=== PATIENT | female | born 1965 | race Hispanic/Latino ===

== ENCOUNTER 2018-05-23 05:30 | Day surgery (SDC) | payer BC ==
[~2018-05-23] VITALS: Ht 167.6 cm; Wt 73.2 kg
[~2018-05-23 05:30] MED LIST: CLON0.1T PO; CYCL10 PO; ESOM40CA PO; INSU10VI3 SQ; INSU3INS3 SQ; LINA290C PO; LORA10CA PO; LORA10TA7 PO; LOSA100T20 PO; MELO-108 PO; METO-296 PO; MONT10TA21 PO; PREG100C PO; RANI-248 PO; SIMV40TA59 PO; ZOLP10TA2 PO; [UNRECOGNIZED DRUG - CODE] PO
[2018-05-23] MEDS ORDERED: SODIUM CHLORIDE 0.9% 1000ML 1,000 ML IV ONE (05:46)
[2018-05-23 06:04] VITALS: BP 110/64
[2018-05-23] MEDS ORDERED: LIDOCAINE HCL 2% 20ML ONE (06:51)
== END 2018-05-23 07:40 | disposition home or self-care (01) ==
LOC: DAH 05:30
PROVIDERS: ATTEND Internal Medicine
DX: K31.89 Other diseases of stomach and duodenum (principal); I10 Essential (primary) hypertension; F41.9 Anxiety disorder, unspecified; F32.9 Major depressive disorder, single episode, unspecified; E11.9 Type 2 diabetes mellitus without complications; Z90.49 Acquired absence of other specified parts of digestive tract; Z98.890 Other specified postprocedural states; Z79.899 Other long term (current) drug therapy
CPT/HCPCS: 43237; 82948; A4606; J3490; J7030; 43231